=== PATIENT | male | born 1995 | race Caucasian/White ===

== ENCOUNTER 2018-09-04 13:46 | Emergency (ER) | payer SELFPAY ==
[2018-09-04 13:59] VITALS: BP 116/59; PULSE 82; TEMP 98.5; BMI 42.5
--- NOTE | 2018-09-04 14:59 | PDOC ---
History of Present Illness - General Chief Complaint: Chest Pain Stated Complaint: CHEST PAIN Time Seen by Provider: 09/04/18 14:36 History Source: Patient Exam Limitations: Clinical Condition - History of Present Illness Initial Comments: 09/04/18 14:55 Patient with no significant PMhx present with complains of mid-sternal chest pains since yesterday after playing soccer yesterday. Denies trauma or injury during soccer. Denies SOB, dizziness, palpitations, numbness or tingling sensation . Denies sweats, N/V. Patient did not take anything for pain. Report increased pain when he presses on the middle of the chest Timing/Duration: 24 hours Past History - Past Medical History Allergies/Adverse Reactions: Allergies Allergy/AdvReac Type Severity Reaction Status Date / Time No Known Allergies Allergy Verified 09/04/18 13:59 Home Medications: Ambulatory Orders Ibuprofen [Motrin -] 600 mg PO TID PRN #90 tablet 09/04/18 COPD: No Other medical history: obesity - Suicide/Smoking/Psychosocial Hx Smoking History: Never smoked Number of Cigarettes Smoked Daily: 1 Information on smoking cessation initiated: No Hx Alcohol Use: No Drug/Substance Use Hx: Yes (marijuana) Review of Systems - Review of Systems Able to Perform ROS?: Yes Is the patient limited Citizen [place] proficient: No Constitutional: No: Malaise HEENTM: No: Symptoms Reported, See HPI, Eye Pain, Blurred Vision, Tearing, Recent change in vision, Double Vision, Cataracts, Ear Pain, Ocular Prothesis, Ear Discharge, Nose Pain, Nose Congestion, Tinnitus, Nose Bleeding, Hearing Loss , Throat Pain, Throat Swelling, Mouth Pain, Dental Problems, Difficulty Swallowing, Mouth Swelling, Other Respiratory: No: Symptoms reported, See HPI, Cough, Orthopnea, Shortness of Breath, SOB with Exertion, SOB at Rest, Stridor, Wheezing, Productive cough, Hemoptysis, Other Cardiac (ROS): Yes: Symptoms Reported, See HPI, Chest Pain (mid-sternal chest pain). No: Edema, Irregular Heart Rate, Lightheadedness, Palpitations, Syncope , Chest Tightness, Other ABD/GI: No: Nausea, Vomiting Neurological: No: Headache, Numbness, Paresthesia, Tingling, Weakness, Dizziness All Other Systems: Reviewed and Negative *Physical Exam - Vital Signs Last Vital Signs Temp Pulse Resp BP Pulse Ox 98.5 F 82 19 116/59 L 100 09/04/18 13:56 09/04/18 13:56 09/04/18 13:56 09/04/18 13:56 09/04/18 13:56 - Physical Exam General Appearance: Yes: Nourished, Appropriately Dressed. No: Apparent Distress Moderate Sedation - Procedure Monitoring Vital Signs: Procedure Monitoring Vital Signs Temperature 98.5 F 09/04/18 13:56 Pulse Rate 82 09/04/18 13:56 Respiratory Rate 19 09/04/18 13:56 Blood Pressure 116/59 L 09/04/18 13:56 O2 Sat by Pulse Oximetry (%) 100 09/04/18 13:56 ED Treatment Course - LABORATORY CBC & Chemistry Diagram: 09/04/18 14:15 09/04/18 14:15 - RADIOLOGY Radiology Studies Ordered: Category Date Time Status CHEST PA & LAT [RAD] Stat Radiology 09/04/18 14:44 Ordered Medical Decision Making - Medical Decision Making 09/04/18 14:57 Patient with no significant PMhx present with complains of mid-sternal chest pains since yesterday after playing soccer yesterday. Denies trauma or injury during soccer. Denies SOB, dizziness, palpitations, numbness or tingling sensation . Denies sweats, N/V. Patient did not take anything for pain. Report increased pain when he presses on the middle of the chest Clinical exam significant for mild reproduceable mid-sternal tenderness otherwise normal exam. Normal cardio exam and lungs CTAB with patient in NAD. EKG shows NSR. CBC, CMP cardiac profile and CXR ordered to r/o acute chest pathology. Symptoms likely costochondritis and less likely CO 09/04/18 16:30 Chest x-ray shows no acute pathology. CBC, chemistry lab and cardial profile unremarkable. Patient's symptoms likely costochondritis is stable for discharge with ibuprofen as needed for pain and strict follow-up. *DC/Admit/Observation/Transfer Diagnosis at time of Disposition: Chest wall pain, Acute costochondritis - Discharge Dispostion Disposition: HOME Condition at time of disposition: Improved Decision to Admit order: No - Prescriptions Prescriptions: Ibuprofen [Motrin -] 600 mg PO TID PRN #90 tablet PRN Reason: Pain - Referrals Referrals: Kel Lindsay MD [Staff Physician] - - Patient Instructions Printed Discharge Instructions: Costochondritis Additional Instructions: you can take motrin 600 mg every 8 hrs as needed for pain. return for shortness or breath, dizziness or any concerns. you labs and ekg and chest xray are normal. you should see a regular doctor. if you do not have one you can follow up with Dr Lindsay, see referral information and call to make and appointment. - Post Discharge Activity
[2018-09-04 15:00] LABS: BASO % 0.5 % (0-2.0); EOS % 0.3 % (0-4.5); HEMATOCRIT 44.6 % (35.4-49); HEMOGLOBIN 15.6 GM/dL (11.7-16.9); LYMPH % 16.3 % (8-40); MCH 31.1 pg (25.7-33.7); MCHC 34.9 g/dl (32.0-35.9); MEAN CELL VOLUME 88.9 fl (80-96); MONO % 6.9 % (3.8-10.2); PLATELET COUNT 247 K/MM3 (134-434); RBC 5.01 M/mm3 (4.00-5.60); RDW 13.5 % (11.9-15.9); WHITE BLOOD COUNT 10.4 K/mm3 (4.0-10.0)
[2018-09-04 15:11] LABS: INR 1.11 (0.83-1.09); PROTHROMBIN TIME (PATIENT) 13.1 SEC (9.7-13.0)
[2018-09-04 15:42] LABS: ALK PHOS 138 U/L (45-117); ANION GAP 8 MMOL/L (8-16); BILIRUBIN,TOTAL 0.7 mg/dL (0.2-1); BLOOD UREA NITROGEN 15 mg/dL (7-18); CALCIUM 8.9 mg/dL (8.5-10.1); CHLORIDE 104 mmol/L (98-107); CO2 25 mmol/L (21-32); GLUCOSE,RANDOM 89 mg/dL (74-106); POTASSIUM 3.7 mmol/L (3.5-5.1); SGOT/AST 21 U/L (15-37); SGPT/ALT 33 U/L (13-61); SODIUM 137 mmol/L (136-145); TOT PROT 7.5 g/dl (6.4-8.2)
--- NOTE | 2018-09-04 16:14 | PDOC ---
*Physical Exam - Vital Signs Last Vital Signs Temp Pulse Resp BP Pulse Ox 98.5 F 82 19 116/59 L 100 09/04/18 13:56 09/04/18 13:56 09/04/18 13:56 09/04/18 13:56 09/04/18 13:56 - Physical Exam General Appearance: Yes: Nourished HEENT: positive: CATA Neck: positive: Trachea midline Respiratory/Chest: positive: Lungs Clear, Normal Breath Sounds, Other (chest wall tenderness.) Cardiovascular: positive: Regular Rhythm, Regular Rate, S1, S2 Gastrointestinal/Abdominal: positive: Normal Bowel Sounds, Flat, Soft Extremity: positive: Normal Capillary Refill, Normal Inspection, Normal Range of Motion Integumentary: positive: Normal Color, Dry, Warm Neurologic: positive: Fully Oriented, Alert, Normal Mood/Affect Heart Score/ECG Review #1 General ECG Interpretation: Sinus Rhythm, Normal Rate (82), Normal Intervals, No acute ischemic changes (TWi III only.) ED Treatment Course - LABORATORY CBC & Chemistry Diagram: 09/04/18 14:15 09/04/18 14:15 - ADDITIONAL ORDERS Additional order review: Laboratory Results 09/04/18 09/04/18 14:15 14:15 PT with INR 13.10 H INR 1.11 H PTT (Actin FS) 33.0 Sodium 137 Potassium 3.7 Chloride 104 Carbon Dioxide 25 Anion Gap 8 BUN 15 Creatinine 1.0 Creat Clearance w eGFR 91.80 Random Glucose 89 Calcium 8.9 Total Bilirubin 0.7 AST 21 ALT 33 Alkaline Phosphatase 138 H Creatine Kinase 274 Creatine Kinase Index 0.3 CK-MB (CK-2) < 1.0 Troponin I < 0.02 Total Protein 7.5 Albumin 4.0 09/04/18 14:15 RBC 5.01 MCV 88.9 MCHC 34.9 RDW 13.5 MPV 9.0 Neutrophils % 76.0 Lymphocytes % 16.3 D Monocytes % 6.9 Eosinophils % 0.3 Basophils % 0.5 Medical Decision Making - Medical Decision Making 09/04/18 16:15 23 yo m no pmhx right eye blindness, obesity, here with c/o chest pain after playing soccer. pt states noted it after got home. no h/o syncope or sob during exercise. no family h/o collapse or cad. pt states worse when he moves his left arm no f/c no h/o pe or dvt. no leg swelling .no f/c/ no cough. on exam mild left chest wall ttp. no rebound no guarding. ext wwp. plan labs ekg cxr. all negative. tyshawn conti pt young age. dc with pcp followup. pt seen with rei jesus agree with assessment and plan. *DC/Admit/Observation/Transfer Diagnosis at time of Disposition: Chest wall pain - Discharge Dispostion Disposition: HOME Condition at time of disposition: Improved Decision to Admit order: No - Prescriptions Prescriptions: Ibuprofen [Motrin -] 600 mg PO TID PRN #90 tablet PRN Reason: Pain - Referrals Referrals: Kel Lindsay MD [Staff Physician] - - Patient Instructions Printed Discharge Instructions: Costochondritis Additional Instructions: you can take motrin 600 mg every 8 hrs as needed for pain. return for shortness or breath, dizziness or any concerns. you labs and ekg and chest xray are normal. you should see a regular doctor. if you do not have one you can follow up with Dr Lindsay, see referral information and call to make and appointment. - Post Discharge Activity
--- NOTE | 2018-09-05 11:07 | EKG ---
Test Reason : Blood Pressure : / mmHG Vent. Rate : 082 BPM Atrial Rate : 082 BPM P-R Int : 160 ms QRS Dur : 080 ms QT Int : 346 ms P-R-T Axes : 040 057 015 degrees QTc Int : 404 ms POOR DATA QUALITY, INTERPRETATION MAY BE ADVERSELY AFFECTED NORMAL SINUS RHYTHM NORMAL ECG WHEN COMPARED WITH ECG OF 03-JAN-2015 23:41, NO SIGNIFICANT CHANGE WAS FOUND Confirmed by BRIAN CASTILLO, ZAINAB ([id number]) on 09/05/2018 11:06:38 AM Referred By: Confirmed By:ZAINAB TORRES MD
== END 2018-09-04 16:34 | disposition home or self-care (01) ==
LOC: JER 13:46
DX: M94.0 Chondrocostal junction syndrome [Tietze] (principal)
CPT/HCPCS: 36415; 71046-TC-FY; 80053; 82550; 82553; 84484; 85025; 85610; 85730; 93005; 93010; 99283-25